=== PATIENT | male | born 1995 | race Caucasian/White ===

== ENCOUNTER 2016-12-27 04:48 | Emergency (ER) | payer OTHER ==
[~2016-12-27] VITALS: Ht 185.4 cm; Wt 90.9 kg
[2016-12-27 04:56] VITALS: BP 161/83; PULSE 123; RESP 24; O2SAT 100
--- NOTE | 2016-12-27 05:17 | ED.REPORT ---
HPI-General Illness Date of Service Dec 27, 2016 ED Provider: Rob Escalona MD The pt is a 21 y/o male with a hx of IV heroin use (sober for a few months) and Percocet use who presents to the ED requesting Suboxone. He has been using Percocet for about a month. He last used it 24 hours ago. Nursing Notes Stated Complaint: SUBSTANCE ABUSE Chief Complaint: Substance Abuse Nursing Notes Reviewed: Yes Allergies: Coded Allergies: No Known Allergies (Unverified , 12/27/16) Scheduled Buprenorphine HCl/Naloxone HCl (Suboxone 8 mg-2 mg Sl Film) 1 Each Film 1 EACH SL DAILY General Time Seen by MD: 05:09 Chief Complaint Other (requesting Suboxone) Hx Obtained From: Patient Arrived By: Walk-in Sudden in Onset?: No Onset Occurred: 1 day ago Symptom Duration: Since onset Severity: Current: No pain currently Severity: Maximum: No pain Recent Healthcare: No recent doctor visit Past Medical History Past Medical History Percocet use Past Surgical History none reported Smoking History Unknown if Ever Smoker Social History Drug Use: IV drugs (sober for a few months), Percocet Ambulatory Status Independent Review of Systems Requesting: Suboxone Complete sys rev & neg: except as marked. Physical Exam Vital Signs Vital Signs Date Time Temp Pulse Resp B/P Pulse Ox O2 Delivery O2 Flow Rate FiO2 12/27/16 06:28 36.4 67 20 138/80 100 Room Air 12/27/16 04:56 37.2 123 24 161/83 100 Room Air Initial VS: Reviewed, Vital signs abnormal Head / Eyes: Atraumatic, Normocephalic Neck: Supple, Non-tender, Full range of motion Respiratory: Breath sounds normal, Clear to auscultation, No respiratory distress Cardiovascular: Regular rate & rhythm, Heart sounds normal, Intact distal pulses Abdomen / GI: Soft, Non-tender, No guarding, No rebound, No distention Extremities: Vascular intact, Neuro intact, No swelling, No tenderness Skin: Warm, Dry, No cyanosis Neurologic: Alert, Oriented, Nonfocal General/Constitutional: Awake, Alert, No acute distress, Well appearing, Cooperative Re-Eval/Medical Decision Med Decision/Clinical Course 21-year-old male desires medically assisted detoxification. He was placed on a prescription of Suboxone and given expedited follow-up at [facility]. Time of Eval: 05:13 Re-Evaluation/Progress Note: Rechecked pt. Discussed diagnosis and plan to discharge. Pt understands and agrees with the plan. F/U instruction and RTER warning given. All questions addressed. Counseled Regarding: Diagnosis, Need for follow-up, When/why to return to ED Discharge & Departure Primary Impression: Opioid dependence with withdrawal Disposition: Home Discharge Condition All VS Reviewed: Yes Condition: Improved Patient Instructions: Buprenorphine/Naloxone (Into the mouth) Additional Instructions: Buprenorphine/naloxone / (Suboxone) film strips, one strip dissolved orally daily, #6 prescription written. Contact [phone] for the next available [facility] appointment. Scribe Attestation Portions of this note were transcribed by Alfa Perez. I,, personally performed the history,physical exam and medical decision-making;I reviewed and confirmed the accuracy of the information in the transcribed note. Signed by Shen Guthrie. 12/27/16 Rob Escalona MD Dec 27, 2016 05:16 Alfa Perez Dec 27, 2016 05:38
[2016-12-27] MEDS ORDERED: Buprenorphine 2 mg SL Tablet SL ONE (05:40)
[2016-12-27] MEDS ORDERED: BUPR1FIL3 SL (05:44)
[2016-12-27 06:28] VITALS: BP 138/80; PULSE 67; RESP 20; O2SAT 100
== END 2016-12-27 06:15 | disposition home or self-care (01) ==
LOC: SED 04:48
DX: F11.23 Opioid dependence with withdrawal (principal)

== ENCOUNTER 2016-12-31 18:07 | Emergency (ER) | payer OTHER ==
[~2016-12-31] VITALS: Ht 185.4 cm; Wt 90.9 kg
[~2016-12-31 18:07] MED LIST: BUPR1FIL3 SL
[2016-12-31 18:30] VITALS: BP 123/71; PULSE 101; RESP 16; O2SAT 100
--- NOTE | 2016-12-31 19:10 | ED.REPORT ---
HPI-Medication Refill Date of Service Dec 31, 2016 ED Provider: Doc,Ed MD History of Present Illness: trying to get suboxone prescription changed from strips to pills, have a prescription but can not afford the prescription 60 some dollars for 6 strips. primary care is no one. does not want the strips. When asked to see the prescription he states Mom filled the prescription and she has the strips but not the bottle. However, he is unable to produce the prescription bottle. Saw Dr. Escalona on 12/27/2016 Nursing Notes Stated Complaint: NEED SUBOXONE FOR OPIOD WITHDRAWL Chief Complaint: Substance Abuse Nursing Notes Reviewed: Yes (is no one) Allergies: Coded Allergies: No Known Allergies (Unverified , 12/31/16) Scheduled Buprenorphine HCl/Naloxone HCl (Suboxone 8 mg-2 mg Sl Film) 1 Each Film 1 EACH SL DAILY General Time Seen by Provider: 19:05 Chief Complaint Other (wants change in suboxone from strips to pills) Hx Obtained From: Patient Past Medical History Past Medical History Percocet use Past Surgical History none reported Smoking History Current Every Day Smoker (1/2 pack a day for 1 year) Social History Alcohol Use: Denies alcohol use Drug Use: IV drugs, Percocet Occupation lives by self, 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 Ambulatory Status Independent Review of Systems Basic Review of Systems Eyes: Vision NL, No discharge Hematologic: No bleeding, No bruising Psychiatric: Normal thought content Physical Exam Initial Vital Signs Vital Signs (First) Date Time Temp Pulse Resp B/P Pulse Ox O2 Delivery O2 Flow Rate FiO2 12/31/16 18:30 36.9 101 16 123/71 100 Room Air Initial VS: Reviewed, Vital signs normal General/Constitutional: Well-developed, Well-nourished Head / Eyes: Atraumatic, Normocephalic, PERRL ENT: Mucous membranes moist, Conjunctiva normal, No scleral icterus Neck: Supple, Non-tender, Full range of motion Respiratory: Breath sounds normal, Clear to auscultation, No respiratory distress Cardiovascular: Regular rate & rhythm, Heart sounds normal, Intact distal pulses Abdomen / GI: Soft, Non-tender, No guarding, No rebound, No distention Back: No CVA tenderness Lymphatic: No lymphadenopathy Extremities: Vascular intact, Neuro intact, No swelling, No tenderness Skin: Warm, Dry, No cyanosis Neurologic: Alert, Oriented, Nonfocal Psychiatric: Mood/affect normal, Behavior normal, Normal thought content General/Constitutional: Awake, Alert, No acute distress Additional Notes: patient with multiple pick scabs and sores in various stages of healing. None infected. Respiratory / Chest: Atraumatic, Breath sounds NL, Breath sounds = bilat, No respiratory distress Cardiovascular: Heart rate NL, Regular rhythm, Heart sounds NL, No gallop Abdomen: Atraumatic, Soft, Non-tender, McBurney's non-tender Re-Evaluation & [facility] Med Decision/Clinical Course 21 year old male requesting a change in the prescription of suboxone that was provided by Dr. Escalona. He is requesting the pill form, states his insurance will cover that. States his MOm paid for the prescription and she has the strips and is not able to get it to him. Encouraged to follow up with [facility] Patient Discharge & Departure Impression: Primary Impression: Medication refill Disposition: Home Additional Instructions: Unfortunately, The ER is unable to provide ongoing suboxone strip prescription. If you desire a change in the formulation from strips to pills please discuss this with your prescriber. Please go or call [facility] tomorrow to see about getting into a treatment program. Referrals: [facility] (PCP) [facility] E[facility] Provider for [facility]: Sonny Armenta DO copies to: [facility] Justa Ramires Dec 31, 2016 19:10
== END 2016-12-31 19:26 | disposition home or self-care (01) ==
LOC: SED 18:07
DX: Z76.0 Encounter for issue of repeat prescription (principal); F17.200 Nicotine dependence, unspecified, uncomplicated